=== PATIENT | female | born 1960 | race Caucasian/White ===

== ENCOUNTER → 2016-06-19 | Outpatient (CLI) | payer BC ==
[~2016-06-19] MED LIST: ALBU8.5H3; ASPI-558 PO; CALC-446 PO; FISH1CAP29 PO; LEVO75TA58 PO; MULT-934 PO
--- NOTE | 2016-06-20 09:19 | DI ---
Indication: ITS.REASON: M79.641 PAIN IN RIGHT HAND, M79.642 PAIN IN LEFT HAND PROCEDURE: HAND BILATERAL 3 VIEW: Encounter: Initial Comparison: None Findings: Right hand: No acute fracture or dislocation. Mild to moderate degenerative change at the first carpometacarpal joint. The joint spaces are otherwise maintained. No osseous erosions. Left hand: No acute fracture or dislocation seen. Mild degenerative change at the first carpometacarpal joint. The remaining joint spaces are normal. No osseous erosions. Impression: Right hand: Mild osteoarthritis. Left hand: Minimal osteoarthritis. .
--- NOTE | 2016-06-20 09:20 | DI ---
Indication: ITS.REASON: M25.562 PAIN IN LEFT KNEE PROCEDURE: KNEE LEFT 3 VIEWS: Encounter: Initial Comparison: None Findings: There is no acute fracture, dislocation or malalignment identified. Joint spaces are normal. Impression: No acute osseous abnormality. .
== END ==
LOC: IMA 18:44
PROVIDERS: ATTEND Family Medicine
DX: M19.042 Primary osteoarthritis, left hand (principal); M19.041 Primary osteoarthritis, right hand; M79.641 Pain in right hand; M79.642 Pain in left hand; M25.562 Pain in left knee